=== PATIENT | female | born 1960 | race Caucasian/White ===

== ENCOUNTER 2017-02-11 19:36 | Inpatient (IN) ==
[2017-02-11] MEDS ORDERED: ASPIRIN PO STA (19:41)
[2017-02-11 20:18] LABS: BASO% 0.3 % (0.0-0.8); EOS% 0.8 % (0.0-10.0); HEMATOCRIT 44.1 % (37.0-47.0); HEMOGLOBIN 15.3 g/dL (12.0-16.0); IMM GRAN# 0.09 X1000 (0.0-0.04); IMM GRAN% 0.4 % (0.0-0.5); LYMPH# 5.21 X1000 (1.2-3.4); MANUAL DIFF NEEDED? NO; MCH 29.5 PG (27-31); MCHC 34.7 g/dL (33-37); MONO# 1.34 X1000 (0.11-0.59); MONO% 5.7 % (1.7-9.3); MPV 11.2 FL (7.4-10.4); NEUT% 70.8 % (42.2-75.2); PLT 382 X1000 (130-400); RBC 5.19 XMIL (4.2-5.4)
[2017-02-11 20:22] LABS: INR 0.97; PROTIME 10.2 Seconds (9.2-11.7); PTT 24.8 Seconds (22.0-36.0)
[2017-02-11 20:40] LABS: AGAP 16; ALKALINE PHOSPHATASE 121 U/L (32-104); BUN 8 mg/dL (8-22); CALCIUM 9.9 mg/dL (8.8-10.2); CHLORIDE 97 mmol/L (98-107); CK PROFILE 34 U/L (24-173); COSMO 286; GOT 22 U/L (10-30); GPT 25 U/L (10-36); MAGNESIUM 1.6 mg/dL (1.5-2.7); SODIUM 137 mmol/L (136-145); TCO2 24 mmol/L (25-35); TOTAL BILIRUBIN 0.45 mg/dL (0.20-1.00); TOTAL PROTEIN 7.3 g/dL (6.3-8.3)
[2017-02-11] MEDS ORDERED: ZOFRAN IV ONE (21:59)
[2017-02-11] MEDS ORDERED: ASPIRIN PO ONE (22:00)
[2017-02-11] MEDS ORDERED: ZOSYN 3.375 GM in NS 50 ML IV ONE (22:03)
[2017-02-11] MEDS ORDERED: HUMULIN R SUBQ ONE (22:09)
[2017-02-11] MEDS ORDERED: VANCOMYCIN IV PER PHARMACY MISC SCH (22:15)
[2017-02-11] MEDS ORDERED: HUMULIN R IV ONE (22:57)
[2017-02-11] MEDS ORDERED: VANCOMYCIN 1,500 MG in NS 250 ML IV ONE (23:00)
[2017-02-12] MEDS ORDERED: VANCOMYCIN IV PER PHARMACY MISC SCH (00:31)
[2017-02-12] MEDS ORDERED: ZOFRAN IV PRN (01:51)
[2017-02-12] MEDS: MORPHINE IV PRN ×2 (02:09→16:16)
[2017-02-12 05:15] LABS: MANUAL DIFF NEEDED? NO
[2017-02-12 05:24] LABS: BASO% 0.2 % (0.0-0.8); EOS# 0.01 X1000 (0.0-0.7); EOS% 0.1 % (0.0-10.0); HEMATOCRIT 42.4 % (37.0-47.0); HEMOGLOBIN 14.7 g/dL (12.0-16.0); IMM GRAN# 0.05 X1000 (0.0-0.04); IMM GRAN% 0.3 % (0.0-0.5); LYMPH# 2.43 X1000 (1.2-3.4); MCH 29.2 PG (27-31); MCHC 34.7 g/dL (33-37); MCV 84.1 FL (81-99); MONO# 0.57 X1000 (0.11-0.59); MONO% 3.3 % (1.7-9.3); MPV 11.4 FL (7.4-10.4); NEUT% 82.1 % (42.2-75.2); PLT 335 X1000 (130-400); RBC 5.04 XMIL (4.2-5.4)
[2017-02-12 05:55] LABS: AGAP 17; BUN 9 mg/dL (8-22); CALCIUM 9.6 mg/dL (8.8-10.2); CHLORIDE 99 mmol/L (98-107); COSMO 285; POTASSIUM 4.2 mmol/L (3.5-5.1); SODIUM 138 mmol/L (136-145); TCO2 22 mmol/L (25-35)
[2017-02-12] MEDS: ZOSYN 3.375 GM in NS 50 ML IV SCH ×4 (06:10→23:20)
[2017-02-12] MEDS: HUMULIN R SUBQ SCH ×4 (06:10→20:49)
[2017-02-12] MEDS ORDERED: SODIUM CHLORIDE 0.9% INJ PRN (06:45)
[2017-02-12] MEDS ORDERED: PHENERGAN IV PRN (06:45)
[2017-02-12 08:09] LABS: URINE CULTURE NEEDED? NO; URINE MICRO REVIEW NEEDED? NO; URINE SOURCE CLEAN CATCH
[2017-02-12 08:16] LABS: BILIRUBIN URINE NEGATIVE (NEGATIVE); BLOOD URINE NEGATIVE (NEGATIVE); COLOR YELLOW; GLUCOSE URINE >1000 mg/dL (NEGATIVE); LEUKOCYTES URINE NEGATIVE (NEGATIVE); NITRITE URINE NEGATIVE (NEGATIVE); PH URINE 6.5; PROTEIN URINE 30 mg/dL (NEGATIVE); TURBIDITY URINE CLEAR (CLEAR); UROBILINOGEN URINE NORMAL (NORMAL)
[2017-02-12 08:17] LABS: UR EPITHELIAL CELLS <10 /HPF (<10); URINE BACTERIA 1+ /HPF; URINE RBC <10 /HPF (<10); URINE WBC <10 /HPF (<10)
[2017-02-12] MEDS: LASIX PO SCH (09:22)
[2017-02-12] MEDS: LANTUS SUBQ SCH (09:22)
[2017-02-12] MEDS: COREG PO SCH ×2 (09:22→20:43)
[2017-02-12] MEDS ORDERED: CORDARONE 150 MG/D5W 150 MG/100 ML IV.SOLN IV ONE (11:24)
[2017-02-12] MEDS ORDERED: CORDARONE IV ONE (11:24)
[2017-02-12] MEDS ORDERED: CORDARONE 360 MG/D5W 360 MG/200 ML IV.SOLN IV ONE (11:30)
[2017-02-12 11:35] LABS: CK INDEX 23.1 (0.0-2.5); CK-MB 99.68 ng/mL (0.0-5.0)
[2017-02-12 11:50] LABS: ALBUMIN 4.3 g/dL (3.5-5.0); ALKALINE PHOSPHATASE 130 U/L (32-104); DIRECT BILIRUBIN < 0.20 mg/dL (0.00-0.20); GOT 59 U/L (10-30); GPT 34 U/L (10-36); TOTAL BILIRUBIN 0.36 mg/dL (0.20-1.00); TOTAL PROTEIN 7.9 g/dL (6.3-8.3)
[2017-02-12] MEDS: LOVENOX SUBQ SCH ×2 (12:06→23:20)
[2017-02-12] MEDS: VANCOMYCIN 1 GM/NS 1 GM/250 ML IVPB IV SCH (12:49)
[2017-02-12] MEDS ORDERED: CORDARONE 540 MG in D5W 289.2 ML IV ONE (17:00)
[2017-02-12 19:14] LABS: CK INDEX 20.6 (0.0-2.5); CK-MB 267.2 ng/mL (0.0-5.0)
[2017-02-12] MEDS ORDERED: COZAAR PO SCH (21:00)
[2017-02-12] MEDS ORDERED: ASPIRIN PO SCH (21:00)
[2017-02-13] MEDS: VANCOMYCIN 1 GM/NS 1 GM/250 ML IVPB IV SCH (02:12)
[2017-02-13] MEDS: MORPHINE IV PRN (03:19)
[2017-02-13 04:44] LABS: HEMOGLOBIN A1C 9.1 % (4.8-6.0)
[2017-02-13 04:51] LABS: CALCIUM 8.6 mg/dL (8.8-10.2); POTASSIUM 3.6 mmol/L (3.5-5.1)
[2017-02-13 04:54] LABS: BASO% 0.2 % (0.0-0.8); EOS# 0.03 X1000 (0.0-0.7); EOS% 0.1 % (0.0-10.0); HEMATOCRIT 40.5 % (37.0-47.0); IMM GRAN# 0.09 X1000 (0.0-0.04); IMM GRAN% 0.4 % (0.0-0.5); LYMPH# 3.98 X1000 (1.2-3.4); MANUAL DIFF NEEDED? YES; MCH 29.6 PG (27-31); MCHC 34.6 g/dL (33-37); MCV 85.6 FL (81-99); MONO# 2.07 X1000 (0.11-0.59); MONO% 8.3 % (1.7-9.3); MPV 11.5 FL (7.4-10.4); PLT 297 X1000 (130-400); RBC 4.73 XMIL (4.2-5.4)
[2017-02-13 05:16] LABS: CK INDEX 15.5 (0.0-2.5); CK-MB 166.9 ng/mL (0.0-5.0)
[2017-02-13] MEDS: ZOSYN 3.375 GM in NS 50 ML IV SCH ×2 (05:49→11:21)
[2017-02-13] MEDS: HUMULIN R SUBQ SCH ×2 (06:30→11:22)
[2017-02-13 08:18] LABS: HYPOCHROM 1+; LYMPHS 18 % (21-51); MONO 6 % (1-9)
[2017-02-13] MEDS: COREG PO SCH (08:46)
[2017-02-13] MEDS: LANTUS SUBQ SCH (08:46)
[2017-02-13] MEDS: LASIX PO SCH (08:46)
[2017-02-13] MEDS ORDERED: LANTUS SUBQ SCH (09:08)
[2017-02-13 11:04] VITALS: BP 90/61
[2017-02-13] MEDS: LOVENOX SUBQ SCH (11:22)
[2017-02-13] MEDS ORDERED: CORDARONE 150 MG/D5W 150 MG/100 ML IV.SOLN IV ONE (13:19)
[2017-02-13] MEDS ORDERED: CORDARONE 360 MG/D5W 360 MG/200 ML IV.SOLN IV SCH (13:30)
[2017-02-14] MEDS ORDERED: LEVAQUIN 500 MG/D5W 500 MG/100 ML IVPB IV SCH (09:00)
== END 2017-02-13 14:25 | disposition short-term general hospital (02) ==
LOC: ED 19:36 → SUATTDRO 23:38 → 3S 23:38
PROVIDERS: ADMIT Emergency Medicine; ATTEND Internal Medicine